=== PATIENT | female | born 1980 | race Caucasian/White ===

== ENCOUNTER → 2024-08-03 09:24 | Emergency (ER) | payer OTHER, SELFPAY ==
[2024-08-03 09:32] VITALS: BP 179/109
[2024-08-03 10:34] VITALS: BMI 58.8
[2024-08-03 10:59] LABS: % Basophils 0.4 % (0-2); % Eosinophils 0.8 % (0-6); % Immature Granulocytes 0.4 % (0-0.5); % Lymphocytes 25.7 % (20.5-51.1); % Monocytes 3.7 % (1.7-9.3); Absolute Eosinophils 0.1 10^3/uL (0-0.7); Absolute Lymphocytes 1.9 10^3/uL (1.2-3.4); Absolute Monocytes 0.3 10^3/uL (0.1-0.6); Absolute Neutrophils 5.1 10^3/uL (1.4-6.5); Hematocrit 37.1 % (37.0-47.0); Hemoglobin 12.6 g/dL (12.0-16.0); Mean Corpuscular Hgb 26.7 pg (27.0-31.0); Mean Corpuscular Volume 78.6 fL (81.0-99.0); Mean Platelet Volume 8.6 fL (7.4-10.4); Nucleated Red Blood Cells % 0 %; Platelet Count 246 10^3/uL (130-400); Red Blood Cell Count 4.72 10^6/uL (4.20-5.40); White Blood Cell Count 7.4 10^3/uL (4.8-10.8)
[2024-08-03 11:02] LABS: ALT (SGPT) 26 U/L (0-35); AST (SGOT) 23 U/L (14-36); Albumin 4.6 g/dl (3.5-5.0); Alkaline Phosphatase 108 U/L (38-126); Blood Urea Nitrogen 13 mg/dl (7-17); Calcium 9.7 mg/dl (8.4-10.2); Carbon Dioxide 25 mmol/L (22-30); Chloride 101 mmol/L (98-107); Estimated Creatinine Clearance > 125 ml/min; Glucose 102 mg/dl (70-99); Potassium 4.4 mmol/L (3.5-5.1); Sodium 142 mmol/L (135-145); Total Bilirubin 0.4 mg/dl (0.2-1.3); Total Protein 7.4 g/dl (6.3-8.2); eGFR > 60.00
[2024-08-03 11:06] LABS: Troponin I < 0.012 ng/ml
--- NOTE | 2024-08-03 11:54 | ED.GENMED ---
History of Present Illness
General
Chief Complaint: Chest Pain
Source: patient
Exam Limitations: none
Time Seen by Provider: 08/03/24 11:19
History of Present Illness
History of Present Illness:
Patient is a 44-year-old female who presents to the ER for evaluation. She reports for the past several days(days4 ) she has had intermittent left-sided chest pain into her shoulder, left neck ,and left shoulder blade. In addition she does feel
little epigastric upper abdominal discomfort. She is nauseous. She had a mild headache denies any fever chills. She denies any actual injury. Denies any recent cough or URI symptoms. She denies any shortness of breath or leg swelling. No prior
history of DVT PE. Pain is not worse with moving her left shoulder or moving her neck. She has not taken any for pain.
Past History
Past History
ED Past Medical History: HTN and Other (Morbid obesity)
ED Past Surgical History: Tonsilectomy
Social History
Tobacco: Non-smoker
Review of Systems
Review of Systems
Allergies reviewed?: Yes
All Other Systems: ROS reviewed and negative except as documented in HPI and ROS
Constitutional: Reports no symptoms
Respiratory: Denies cough or trouble breathing
Cardiac: Reports chest pain; Denies palpitations or syncope
ABD/GI: Reports abdominal pain and nausea; Denies vomiting or diarrhea
: Reports no symptoms
Musculoskeletal: Reports no symptoms
Skin: Reports no symptoms
Neurological: Reports no symptoms
Psychiatric: Reports no symptoms
Phy Exam
General Physical Exam
General Presentation: no apparent distress
General age: appears stated age
General Skin: warm and dry
General Habitus: normal and other (elevated BMI)
General Mental: alert
General Hydration: appears well hydrated
Cardiovascular Exam
Cardiovascular Exam: regular rate/rhythm, no murmur and normal peripheral pulses
Pulmonary Exam
Pulmonary Exam: lungs clear, no respiratory distress and chest non tender
Gastrointestinal Exam
Gastrointestinal Exam: other (+ epigastric tenderness )
Neurological Exam
Neurological Exam: alert and oriented x3
Musculoskeletal Exam
Musculoskeletal Exam: full ROM
Skin Exam
Skin Exam: normal color and warm/dry
Psychiatric Exam
Psychiatric Exam: normal mood/affect
Scores
Heart Score for Chest Pain Patients
STEMI patient?: No
History: Slightly or Non-Suspicious
ECG: Normal
Age: </= 45 years
Risk Factors: 1 or 2 Risk Factors
Troponin: </= Normal Limit
Heart Score for Chest Pain Patients: 1
Heart Score Risk: 2.5% MACE over next 6 weeks
Course
Orders/Labs/Results
Orders:
Orders
08/03/24 09:25
Electrocardiogram (*1) Urgent
Reason for Study: Chest Pain
EKG- Treatment ONCE
08/03/24 10:35
Complete Blood Count/With Diff Urgent
Comprehensive Metabolic Panel Urgent
Troponin I Urgent
08/03/24 12:08
D-Dimer Urgent
08/03/24 12:11
US Abdomen Complete/Upper Urgent
Comment:
Reason For Exam: upper abd pain
08/03/24 12:12
Ketorolac [Toradol] 15 mg IV NOW STA
08/03/24 13:35
Chest [CR Chest - 2 Views ] Urgent
Comment:
Reason For Exam: left sided cp
Abnormal Lab Results
08/03/24
10:35
MCV 78.6 L fL
(81.0-99.0)
MCH 26.7 L pg
(27.0-31.0)
Glucose 102 H mg/dl
(70-99)
08/03/24 10:35
08/03/24 10:35
Vital Signs
Initial and Last Documented VS:
Initial Vital Signs
Temp Pulse Resp BP Pulse Ox
98 F 67 16 179/109 97
08/03/24 09:32 08/03/24 09:32 08/03/24 09:32 08/03/24 09:32 08/03/24 09:32
Last Documented Vital Signs
Temp Pulse Resp BP Pulse Ox
98 F 82 16 153/57 96
08/03/24 09:32 08/03/24 13:33 08/03/24 09:32 08/03/24 13:33 08/03/24 13:33
MDM/Problems Addressed
Differential Diagnosis Includes:
not limited to: Musculoskeletal chest pain less likely ACS, less likely PE ,biliary colic ,radiculopathy, pleurisy
MDM/Problems Addressed:
Patient is a 44-year-old female presents to the ER complaining of left-sided chest pain neck pain shoulder pain back pain intermittently for the past several days not associate with shortness of breath. Patient had no complaints abdominal pain
however on exam patient was tender in the epigastric area. She presented awake alert no acute distress nontachycardic not hypoxic. Patient is a non-smoker no control however is sedentary D-dimer was done and negative. Patient denies any
recent viral syndrome or URI symptoms. vitals are stable white count normal hemoglobin stayed electrolytes and cardiac troponin normal. Ultrasound shows severe fatty liver filtration but normal appearance of the gallbladder with no biliary ductal
dilatation no acute findings on chest x-ray. Patient was given Toradol here minimal improvement. Patient however is nontoxic stable for discharge home no concerning findings for patient's cause of chest pain however stable for discharge with
outpatient follow-up possible musculoskeletal. I did review with patient close outpatient follow-up family doctor for reevaluation of symptoms as well as ultrasound findings
*Radiology
Radiology exam reviewed: radiology read reviewed
*Pulse Oximetry
Patient hypoxic: no
*EKG
Interpreted by ED Provider?: Yes
Interpretation: normal
Heart Rate: 97
Rate: normal
Rhythm: sinus
Ischemia: no ischemia
*Critical Care Note
Total Time (30-74mins, 75-104mins- exclusive of procedures): Not Applicable
ED Attending Note
-
Portions of this chart may have been created with voice recognition software.� Occasional wrong word or��sound alike� substitutions may have occurred due to the inherent limitations of voice recognition software.
Discharge Plan
Departure
Patient Disposition: Home (Routine Discharge)
Date of Disposition: 08/03/24
Time of Disposition: 14:31
Patient with high blood pressure during this ER visit?: Yes
Condition: Fair
Covid-19: Not Applicable
Discharge Problem:
Chest pain
Instructions: Chest Pain PCP Follow Up
Prescriptions:
No Action
losartan 50 mg tablet
100 mg PO DAILY
zinc acetate 50 mg (zinc) Capsule
50 mg PO HS
fluoxetine 10 mg tablet
20 mg PO DAILY
omeprazole 40 mg capsule,delayed release(DR/EC)
40 mg PO DAILY
benzonatate 100 mg capsule
100 mg PO TID PRN (Reason: cough)
ferrous sulfate 325 mg (65 mg iron) Tablet
325 mg PO HS
hydrochlorothiazide 25 mg tablet
25 mg PO DAILY
cholecalciferol (vitamin D3) [Vitamin D3] 50 mcg (2,000 unit) Tablet
50 mcg PO HS
cranberry extract 200 mg Capsule
200 mg PO HS
Super C-D3-Zinc
1 tab PO HS
ipratropium-albuterol 0.5 mg-3 mg(2.5 mg base)/3 mL Solution For Nebulization
3 ml inhalation R QID Qty: 180 0RF
Rx Instructions:
and every 4 hours as needed for SOB
budesonide 0.5 mg/2 mL Suspension For Nebulization
0.5 mg inhalation R BID Qty: 60 0RF
guaifenesin 600 mg Tablet Extended Release 12hr
600 mg PO Q12 Qty: 0 0RF
prednisone 10 mg Tablet
See Rx Instructions .ROUTE .COMPLEX Qty: 90 0RF
Rx Instructions:
Take By Mouth:
60 mg daily x5 days, 50 mg daily x5 days,
40 mg daily x5 days, 30 mg daily x5 days,
20 mg daily x5 days, 10 mg daily x 5 days
Referrals:
Chapin Dos Santos MD [Family Provider] -
Activity Restrictions/Additional Instructions:
As discussed follow-up with family doctor for further reevaluation of your symptoms. You may take ibuprofen every 8 hours. In addition follow-up for your ultrasound findings. Return if any worsening of symptoms.
Interventions
Interventions:
*Risk Screen - Suicide Last Done: 08/03/24 09:33
*General Assessment Last Done: 08/03/24 10:31
*Neglect/Abuse Screening Last Done: 08/03/24 09:33
ED- Cardiac Assessment Last Done: 08/03/24 10:35
Discharge Date and Time
Print Language: [place]
[2024-08-03 12:06] VITALS: BP 146/71
[2024-08-03] MEDS: TORADOL 15 MG IV (12:24)
[2024-08-03 12:50] LABS: D-Dimer 0.47 ug/mlFEU (0.00-0.50)
[2024-08-03 13:33] VITALS: BP 153/57
== END | disposition home or self-care (01) ==
LOC: EMR 09:24
PROVIDERS: Nurse Practitioner; EMERGENCY PHYSICIAN Emergency Medicine; FAMILY PHYSICIAN Internal Medicine
DX: R07.89 Other chest pain (principal); R10.816 Epigastric abdominal tenderness; K76.0 Fatty (change of) liver, not elsewhere classified; I10 Essential (primary) hypertension
CPT/HCPCS: 99285; 96374; 71046; 76700; 80053; 84484; 85025; 85379; 93005

== ENCOUNTER → 2024-11-18 09:28 | Outpatient (REF) | payer OTHER, SELFPAY | LOC: WDC 09:28 | PROVIDERS: ATTENDING PHYSICIAN Internal Medicine | DX: N64.4 Mastodynia (principal); N64.59 Other signs and symptoms in breast | CPT/HCPCS: 76642; 77062; 77066 ==

== ENCOUNTER → 2025-10-20 10:00 | Outpatient (REF) | payer OTHER, SELFPAY | LOC: RCS 10:00 | PROVIDERS: ATTENDING PHYSICIAN Nuclear Medicine Nuclear Cardiology; FAMILY PHYSICIAN Internal Medicine | DX: R00.2 Palpitations (principal); I49.3 Ventricular premature depolarization; R07.9 Chest pain, unspecified | CPT/HCPCS: 93306 ==